=== PATIENT | male | born 1970 | race Caucasian/White ===

== ENCOUNTER 2019-05-08 05:40 | Day surgery (SDC) | payer MEDICARE, OTHER ==
[~2019-05-08] VITALS: Ht 182.9 cm; Wt 100.0 kg
[2019-05-08 06:54] VITALS: BP 111/71; Ht 182.9 cm; Wt 100.0 kg
[2019-05-08] MEDS ORDERED: CLOTRIM ANTIFUN15 GM TOPICAL (07:10)
[2019-05-08] MEDS ORDERED: LEVOTHYROXINE137 MCG PO (07:10)
[2019-05-08] MEDS ORDERED: HYDROCODON-ACE1 EA10 PO (07:10)
[2019-05-08] MEDS ORDERED: ZANAFLEX4 MG PO (07:11)
[2019-05-08] MEDS ORDERED: MIRALAX17 GM PO (08:50)
[2019-05-08] MEDS ORDERED: HYDROCODON-ACE1 EAC7 PO (08:50)
== END 2019-05-08 12:00 | disposition home or self-care (01) ==
LOC: D.OPS 05:40
PROVIDERS: ATTEND Surgery
DX: K64.8 Other hemorrhoids (principal)